=== PATIENT | female | born 1970 | race Caucasian/White ===

== ENCOUNTER 2021-11-16 09:16 | Outpatient (REF) | payer OTHER, SELFPAY ==
[2021-11-16 15:15] LABS: ESR 1 mm/hr (0-20)
== END 2021-11-16 09:17 | disposition home or self-care (01) ==
LOC: NCHCN 09:16
PROVIDERS: PCP Physician Assistant; Visit Provider Physician Assistant
DX: M79.18 Myalgia, other site (principal)
CPT/HCPCS: 85652; 86140

== ENCOUNTER 2022-02-10 10:14 | Outpatient (REF) | payer OTHER, SELFPAY ==
[2022-02-10 15:30] LABS: HCT 47.5 % (36.0-46.0); HGB 16.2 g/dL (11.2-15.7); MCH 30.2 pg (27.0-33.0); MCHC 34.1 % (32.0-36.0); MCV 89 fL (80-95); MPV 11.3 fL (8.0-11.0); Platelet Count 231 10^3/uL (130-400); RBC 5.36 10^6/uL (3.93-5.22); RDW 11.9 % (11.7-14.6); RDW-SD 38.3 fL; WBC 6.13 10^3/uL (4.4-10.8)
[2022-02-10 15:45] LABS: TSH 0.48 uIU/mL (0.36-3.74)
== END 2022-02-10 10:15 | disposition home or self-care (01) ==
LOC: NCHCN 10:14
PROVIDERS: PCP Physician Assistant; Visit Provider Physician Assistant
DX: E03.9 Hypothyroidism, unspecified (principal); R53.83 Other fatigue
CPT/HCPCS: 85027; 84443

== ENCOUNTER 2022-04-26 16:36 | Outpatient (REF) | payer OTHER, SELFPAY | END 2022-04-26 16:37 | disposition home or self-care (01) | LOC: NCHCN 16:36 | PROVIDERS: PCP Physician Assistant; Visit Provider Family Medicine | DX: R30.0 Dysuria (principal) | CPT/HCPCS: 87077; 87086; 87186 ==

== ENCOUNTER 2022-05-29 10:05 | Outpatient (REF) | payer OTHER, SELFPAY ==
--- NOTE | 2022-05-29 09:15 | PAPFT_PTH ---
PATIENT: Kim Mcgraw LOC: [facility]#:[id number] AGE/SX: 51/F ROOM: RE05/29/[address]: Candace Sutton : 1970 BED: DIS: 05/29/2022 SPEC #: [id number] RECD: 05/30/22 12:30 STATUS: SALVADRO REQ #: [id number] GURDEEP: 05/29/22 09:[address]: Candace Sutton DEPT: [facility] Cytology RECD BY: Bailey Daley ENTERED: 05/30/22 12:30 SP TYPE: PAPFT OTHR DR: Godwin Nation Tissues: 1 - CX/ENDOCX FOR PAP SMEARS Procedures: PAP THIN PREP/UVM Screening HPV DNA PROBE Comments: [id number]
== END 2022-05-29 10:06 | disposition home or self-care (01) ==
LOC: NCHCN 10:05
PROVIDERS: PCP Physician Assistant; Visit Provider Family Medicine
DX: Z12.4 Encounter for screening for malignant neoplasm of cervix (principal); Z11.51 Encounter for screening for human papillomavirus (HPV)
CPT/HCPCS: 88142; 87624

== ENCOUNTER 2022-11-15 10:43 | Outpatient (REF) | payer OTHER, SELFPAY ==
[2022-11-15 15:54] LABS: HCT 47.1 % (36.0-46.0); HGB 15.8 g/dL (11.2-15.7); MCH 30.6 pg (27.0-33.0); MCHC 33.5 % (32.0-36.0); MCV 91 fL (80-95); MPV 11.6 fL (8.0-11.0); Platelet Count 204 10^3/uL (130-400); RBC 5.17 10^6/uL (3.93-5.22); RDW 11.4 % (11.7-14.6); RDW-SD 38.5 fL; WBC 5.58 10^3/uL (4.4-10.8)
[2022-11-15 16:38] LABS: ALT 29 U/L (14-59); AST 17 U/L (15-37); Albumin 4.1 g/dL (3.4-5.0); Alkaline Phosphatase 68 U/L (46-116); Anion Gap 8.1 mmol/L (3-11); BUN 15 mg/dL (7-18); Bilirubin, Total 0.6 mg/dL (0.2-1.0); CO2 28.9 mmol/L (21.0-32.0); CREATININE 0.8 mg/dL (0.55-1.02); Calcium 9.3 mg/dL (8.5-10.1); Calculated LDL 84 mg/dL (<100); Chloride 104 mmol/L (98-107); Cholesterol 150 mg/dL (<200); Estimated GFR 89.15 (mL/min/1.73m2); Glucose 96 mg/dL (74-106); HDL Cholesterol 51 mg/dL (40-60); Potassium 4.9 mmol/L (3.5-5.1); Sodium 141 mmol/L (136-145); TSH 0.71 uIU/mL (0.36-3.74); Total Protein 7.1 g/dL (6.4-8.2); Triglyceride 76 mg/dL (<150); Vitamin B12 956 pg/mL (193-986)
== END 2022-11-15 10:44 | disposition home or self-care (01) ==
LOC: NCHCN 10:43
PROVIDERS: PCP Physician Assistant; Visit Provider Physician Assistant
DX: E78.5 Hyperlipidemia, unspecified (principal); E03.9 Hypothyroidism, unspecified; I10 Essential (primary) hypertension; E53.8 Deficiency of other specified B group vitamins
CPT/HCPCS: 80053; 80061; 85027; 82607; 84443

== ENCOUNTER → 2022-11-30 08:09 | Outpatient (BNVA) | payer OTHER, SELFPAY | PROVIDERS: PCP Physician Assistant; Referring Provider Physician Assistant; Visit Provider Physical Therapy Assistant | DX: Z12.11 Encounter for screening for malignant neoplasm of colon (principal) ==

== ENCOUNTER 2023-05-15 15:18 | Outpatient (REF) | payer OTHER, SELFPAY ==
[2023-05-15 16:46] LABS: FREE T4 1.13 ng/dL (0.76-1.46); TSH 1.01 uIU/mL (0.36-3.74)
== END 2023-05-15 15:19 | disposition home or self-care (01) ==
LOC: NCHCN 15:18
PROVIDERS: PCP Physician Assistant; Visit Provider Physician Assistant
DX: E03.9 Hypothyroidism, unspecified (principal)
CPT/HCPCS: 84439; 84443

== ENCOUNTER 2024-09-18 22:30 | Outpatient (REF) | payer OTHER, SELFPAY ==
[2024-09-18 16:18] LABS: ALT 30 U/L (14-59); AST 24 U/L (15-37); Alkaline Phosphatase 92 U/L (46-116); Anion Gap 7.6 mmol/L (3-11); BUN 19 mg/dL (7-18); Bilirubin, Total 0.6 mg/dL (0.2-1.0); CO2 28.4 mmol/L (21.0-32.0); CREATININE 0.9 mg/dL (0.55-1.02); Calculated LDL 94 mg/dL (<100); Chloride 106 mmol/L (98-107); Cholesterol 181 mg/dL (<200); Estimated GFR 76.44 (mL/min/1.73m2); Glucose 98 mg/dL (74-106); HDL Cholesterol 66 mg/dL (>or=50); Sodium 142 mmol/L (136-145); TSH 2.25 uIU/mL (0.36-3.74); Total Protein 7.3 g/dL (6.4-8.2); Triglyceride 105 mg/dL (<150); Vitamin B12 742 pg/mL (193-986)
== END 2024-09-18 22:31 | disposition home or self-care (01) ==
LOC: NCHCN 22:30
PROVIDERS: PCP Physician Assistant; Visit Provider Physician Assistant
DX: E53.9 Vitamin B deficiency, unspecified (principal); E03.9 Hypothyroidism, unspecified; E78.5 Hyperlipidemia, unspecified
CPT/HCPCS: 80053; 80061; 82607; 84443

== ENCOUNTER 2024-10-06 02:08 | Outpatient (CLI) | payer OTHER, SELFPAY ==
--- NOTE | 2024-10-06 | DI.MRI_ITS ---
Exam(s) MR LOWER JOINT RT WO EXAM: MR LOWER JOINT RT WO CLINICAL HISTORY: Pain and swelling, no trauma, M23.91-unspecified internal derangement of rt. TECHNIQUE: Multiplanar multisequence MRI was performed. COMPARISON: CR XR KNEE RT 3V AP,LAT,KOMAL from 10/06/2024 FINDINGS: BONES: There is no fracture or contusion pattern. JOINTS: A moderate-sized joint effusion is present. Articular cartilage: Patellofemoral joint: Thinning of the cartilage of the lateral patellar facet extending down to bone . Medial femoral tibial joint: Articular cartilage is unremarkable. Lateral femoral tibial joint: Articular cartilage is unremarkable. LIGAMENTS/TENDONS: Anterior Cruciate: Unremarkable. Posterior Cruciate: Unremarkable. Medial Collateral:Unremarkable. Lateral Collateral ligament complex: Unremarkable. Extensor mechanism: Unremarkable. Medial retinaculum: Unremarkable. Lateral retinaculum: Unremarkable. Popliteus: Unremarkable. MENISCI: The medial meniscus is shows an oblique tear through the posterior horn and blunting at the apex. The lateral meniscus is unremarkable. MUSCLES: Unremarkable. SOFT TISSUES: Small multi lobed Griffin's cyst. IMPRESSION: Tear of the posterior horn of the medial meniscus. Joint effusion. Griffin's cyst. DATA REPOSITORY:
--- NOTE | 2024-10-06 | DI.RAD_ITS ---
Exam(s) XR KNEE RT 3V AP,LAT,KOMAL EXAM: XR KNEE RT 3V AP,LAT,KOMAL CLINICAL HISTORY: DERANGEMENT RT KNEE, M23.91,PAIN, SWELLING, NO TRAUMA. TECHNIQUE: 2D digital imaging was performed. Three views. COMPARISON: No exams were available for comparison FINDINGS: BONES: No acute fracture is present. No bony destructive lesion is seen. JOINTS: The knee is normally aligned. The joint spaces are maintained. No joint effusion is seen. SOFT TISSUE: Normal. IMPRESSION: Unremarkable radiographs of the right knee. DATA REPOSITORY: RADIATION DOSE DELIVERED:
== END 2024-10-06 02:28 ==
LOC: DI 02:09
PROVIDERS: PCP Physician Assistant; Visit Provider Physician Assistant
DX: M23.222 Derangement of posterior horn of medial meniscus due to old tear or injury, left knee (principal)
CPT/HCPCS: 73562; 73721

== ENCOUNTER → 2024-10-08 09:49 | Outpatient (BNVA) | payer OTHER, SELFPAY | PROVIDERS: PCP Physician Assistant; Referring Provider Physician Assistant; Visit Provider Student in an Organized Health Care Education/Training Program | DX: M22.41 Chondromalacia patellae, right knee (principal); S83.241A Other tear of medial meniscus, current injury, right knee, initial encounter; X58.XXXA Exposure to other specified factors, initial encounter | CPT/HCPCS: 99214 ==

== ENCOUNTER 2024-10-17 08:45 | Day surgery (SDC) | payer OTHER, SELFPAY ==
--- NOTE | 2024-10-17 07:06 | W.PM.DSUDISC ---
Date of service: 10/17/24 Discharge Plan Disposition Patient Disposition: Home Condition: Stable Discharge Details Attending Provider: Andrew Soria Primary Care Provider: Godwin Nation Home Meds and New Rx's Prescriptions: New naproxen 250 mg tablet 250 - 500 mg PO BID PRN (Reason: moderate pain and swelling) Qty: 40 0RF oxycodone 5 mg tablet 5 - 10 mg PO .q4-6h MDD 30 mg PRN (Reason: severe pain) Qty: 12 0RF aspirin 81 mg capsule 81 mg PO DAILY 14 Days Qty: 14 0RF Continued cetirizine [Zyrtec] 10 mg tablet 10 mg PO DAILY PRN lisinopril 10 mg tablet 10 mg PO DAILY atorvastatin 20 mg tablet 20 mg PO QHS levothyroxine [Synthroid] 112 MCG tablet 112 mcg PO DAILY B-12 Compliance 1,000 MCG/ML kit 1,000 mcg IM DIRECTED Discharge Instructions Additional Instructions: Surgery: Right knee arthroscopy with partial medial & lateral meniscectomy, patellar chondroplasty, and synovectomy 10/17/24 Activity: Weightbearing as tolerated. Advance range of motion as comfort allows. No knee brace or crutches needed as soon as comfortable. Recommend avoiding sports, pivoting, and squatting for 6-8 weeks. A physical therapy prescription will be sent electronically to start in about 3 weeks. Prescriptions: Aspirin 81 mg take 1 daily to prevent a blood clot for 14 days, starting tomorrow Naproxen 250 mg take 1-2 every 12 hours with a meal as needed for moderate pain Oxycodone 5 mg take 1-2 every 4-6 hours as needed for severe pain You may use [id number] Tylenol (acetaminophen) as needed for mild pain. These pain medications may be taken all at once or in different combinations as needed. Also, recommend Colace (docusate) as a stool softener as surgery and pain medicine cause constipation. You may try [id number] diphenhydramine (Benadryl) 25-50 mg nightly as a sleep aid Dressings: Leave dressing in place for 3 days. May then remove and leave open to air or cover incisions with Band-Aids. Leave the sticky Steri-Strips in place until they fall off or remove them after you shower. May shower after 5 days. Follow-up: 10-[address] Soria You may take off the leg compression stockings this evening at home. You may also leave them on a few days longer if you have a history of leg swelling or edema. Let us know right away if you develop any redness, drainage, fevers, chest pain, or trouble breathing. Do not drink alcohol or drive for at least 24 hours after anesthesia. Please call the office during business hours with any questions or concerns. 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
--- NOTE | 2024-10-17 07:19 | ROE_ITS ---
Operative Note Operative Note PRE-OP DIAGNOSIS: Right knee 1. Medial meniscus tear 2. Chondromalacia POST-OP DIAGNOSIS: same PROCEDURE: Right knee 1. Partial medial & lateral meniscectomy, CPT #81720 2. Greater than 2 compartment synovectomy, CPT #34369: Anterior medial and lateral, intercondylar, patellofemoral, and suprapatellar 3. Chondroplasty, CPT #01828: Patella and medial femoral condyle SURGEON: Andrew Soria ESCAPE WHEEL TOOTH CUTTER: None None ANESTHESIA TYPE: Local By Surgeon and Spinal Refer to Anesthesia Record ESTIMATED BLOOD LOSS: 5 PATHOLOGY: none sent TOURNIQUET TIME: 0 Patient was transported to: PACU Patient's condition: stable Indications: Please see complete medical record for details. Findings: Exam under anesthesia: Full range of motion, no instability. Readily full extension with gentle downward pressure. Arthroscopic findings: Moderately significant diffuse synovitis. Suprapatellar adhesions. Engaging patellofemoral synovitis. Moderate undersurface patellar cartilage irregularity chondromalacia. Moderate anterior medial and anterior lateral synovitis. Inflamed intercondylar synovitis and early small intercondylar bone spurring. Moderate medial femoral condyle and medial compartment chondromalacia. More mild to moderate lateral compartment chondromalacia. Medial meniscus posterior horn superior leaflet degenerative tear with unstable flap edges and some tearing extending into the white zone of the body. Lateral meniscus with bulbous enlargement posterior horn tearing mostly white zone and some separate white-red zone radial tearing of the body. Procedure Description: In the operating room, general anesthesia was induced. The patient was positioned supine on the operating room table. All bony prominences were well- padded. Preoperative antibiotics were administered. The knee was prepped and draped in the usual sterile fashion. The correct patient, procedure, and side of the procedure were all verified prior to incision. Exam under anesthesia was performed. 10 cc of 0.25% bupivacaine containing epinephrine was infiltrated about the planned anteromedial and anterolateral knee arthroscopy portals. An additional 10 cc was infiltrated about the medial compartment. The portals were established and a complete diagnostic arthroscopy was performed with relevant findings detailed above. The mechanical shaver was used to remove adhesions and synovitis from the suprapatellar pouch, engaging inflamed synovitis in the patellofemoral compar tment, impinging synovitis in the intercondylar area, and debride anterior medial and lateral synovitis. The torpedo shaver was used to smooth and debride to a more appropriate and less irregular margin undersurface patellar chondromalacia as well as some chondromalacia on the posterior aspect of the medial femoral condyle. Using a combination of hand instruments including meniscal biters and torpedo shaver both the medial and lateral menisci were inspected and then their respective tears were debrided of all torn tissue to a stable margin. There was excellent removal of the torn tissue which did appear to be mechanically unstable and engaging especially posterior medially. Care was taken to preserve as much meniscus tissue was possible. The meniscal remnant was probed and found to have a stable margin, stable root, and no other tears. Under direct arthroscopic visualization an 18-gauge needle was passed into the knee from superolateral into the suprapatellar pouch. The knee was copiously irrigated with arthroscopic fluid until there was a clear effluent before being drained of all fluid. The anteromedial and anterolateral portals were closed in 3-0 Monocryl in a buried interrupted fashion. An additional 10 cc of 0.25% bupivacaine with epinephrine containing 4 mg of morphine was infiltrated into the knee through the previously placed needle. Mastisol, Steri-Strips, and 4 x 4 gauze were applied over the incisions. The knee was then wrapped gently with an JUNO comressive bandage. The patient tolerated spinal anesthesia without complication and was transferred to the recovery room in a stable condition. She watched the entire procedure, we reviewed the tricompartmental degenerative changes, and likelihood of needing future additional knee treatments like NSAIDs, steroid injection, and possible knee replacement surgery. Date of Procedure: 10/17/24
[2024-10-17 09:10] VITALS: BP 159/92; PULSE 83; RESP 20; TEMP 36.7; O2SAT 100
--- NOTE | 2024-10-17 09:36 | W.ANESPRE ---
General Info Date of Service Date Performed: 10/17/24 Height: 5 ft 7 in Weight: 77.5 kg Body Mass Index (BMI): 26.7 Surgical Procedure: Operation Date: 10/17/24 09:40 Proposed Procedure Side Surgeon p Knee Arthroscopy Right Andrew Soria MD Meds Allergies and Home Medications Allergies Allergy/AdvReac Type Severity Reaction Status Date / Time codeine AdvReac Intermediate Other (See Verified 10/17/24 09:09 Comment) Home Medication ?Medication ?Instructions ?Recorded cyanocobalamin (vitamin B-12) 1,000 mcg IM DIRECTED 08/18/16 1,000 mcg/mL injection kit (B-12 Compliance) levothyroxine 112 mcg tablet 112 mcg PO DAILY 08/18/16 (Synthroid) lisinopril 10 mg tablet 10 mg PO DAILY 05/15/22 cetirizine 10 mg tablet (Zyrtec) 10 mg PO DAILY PRN 11/30/22 atorvastatin 20 mg tablet 20 mg PO QHS 09/25/24 Current Visit Medications: Current Medications Generic Name Dose Route Start Last Admin Trade Name Freq PRN Reason Stop Dose Admin Ringer's Solution 1,000 mls @ 30 mls/hr 10/17/24 06:00 IV 10/17/24 23:59 INFUSION NICOLA Cefazolin Sodium/Dextrose 2 gm in 50 mls @ 100 mls/hr 10/17/24 06:00 Ancef Duplex IVPB 10/17/24 23:59 PREOP NICOLA Tranexamic Acid/Sodium Chloride 1,000 mg in 100 mls @ 600 mls/hr 10/17/24 06:00 IVPB 10/17/24 23:59 DIRECTED NICOLA IV Miscellaneous Supplies 1 each 10/17/24 06:00 Iv Access IV 10/17/24 23:59 DIRECTED NICOLA Oxycodone HCl 0 mg 10/17/24 07:06 Oxycodone 5 Mg Tab PO 11/16/24 07:05 Q3H PRN PRN Pain Sodium Chloride 0 ml 10/17/24 06:00 Normal Saline Flush 10 Ml Syr IV 10/17/24 23:59 PRN PRN Sodium Chloride 0 ml 10/17/24 06:00 Normal Saline 10 Ml Vial IJ 10/17/24 23:59 DIRECTED PRN Sterile Water 0 ml 10/17/24 06:00 Water,Injection,Sterile 10 Ml Vial IJ 10/17/24 23:59 DIRECTED PRN PFSH Active Problems Active Problems: Problem Status Onset Code Chondromalacia of patella, right Acute M22.41 Tear of medial meniscus of right knee Acute S83.241A Hypertension Chronic I10 Vitamin B12 deficiency Acute E53.8 Neck pain Acute M54.2 Other specified disorders of temporomandibular joint Acute M26.69 Hypothyroid Chronic E03.9 Myalgia Acute M79.10 Screening for colon cancer Acute Z12.11 Medical History Medical History John thyroiditis Hyperlipidemia Headache Joint pain Depression Allergic rhinitis Tobacco Smoking/Tobacco Use Status: Former Tobacco Use Passive smoking exposure: No Alcohol Alcohol Intake: current Alcohol intake frequency: a few times a month Substance Use Substance use: Never Substance use type: does not use Vital Signs and Lab Results Vital Signs Most Recent Vital Signs in EMR: Most Recent Vital Signs Temp Pulse Resp BP Pulse Ox 36.7 C 83 20 159/92 H 100 10/17/24 09:10 10/17/24 09:10 10/17/24 09:10 10/17/24 09:10 10/17/24 09:10 Point of Care Results Point of Care Results: POC- Test(urine) Negative 10/17/24 09:22 Lab Results Blood Type / Crossmatch: No Data to Display Complete Blood Count: No Data to Display Complete Metabolic Panel: Sodium 142 mmol/L (136-145) 09/18/24 09:00 Potassium 5.0 mmol/L (3.5-5.1) 09/18/24 09:00 Chloride 106 mmol/L (98-107) 09/18/24 09:00 Carbon Dioxide 28.4 mmol/L (21.0-32.0) 09/18/24 09:00 BUN 19 mg/dL (7-18) H 09/18/24 09:00 Creatinine 0.9 mg/dL (0.55-1.02) 09/18/24 09:00 Est GFR (CKD-EPI 2020) 76.44 (mL/min/1.73m2) 09/18/24 09:00 Calcium 10.0 mg/dL (8.5-10.1) 09/18/24 09:00 Albumin 4.0 g/dL (3.4-5.0) 09/18/24 09:00 Glucose 98 mg/dL (74-106) 09/18/24 09:00 Liver Function Panel: Alanine Aminotransferase (ALT/SGPT) 30 U/L (14-59) 09/18/24 09:00 Aspartate Amino Transf (AST/SGOT) 24 U/L (15-37) 09/18/24 09:00 Coagulation Panel: No Data to Display Cardiac Panel: No Data to Display Arterial Blood Gas: No Data to Display Venous Blood Gas: No Data to Display Pancreas Panel: No Data to Display Thyroid Panel: Thyroid Stimulating Hormone (TSH) 2.25 uIU/mL (0.36-3.74) 09/18/24 09:00 Infectious Disease: No Data to Display Blood Cultures: No Data to Display Toxicology Panel: No Data to Display Panel: No Data to Display Imaging and Studies Imaging and Studies Study information below may be from another EMR and interpreted by another provider. Please see original notes in EMR for more complete details. Stress Test Summary: 08/21/16 Stress results: The rate-pressure product for the peak heart rate and blood pressure was 75878yl Hg/min. Stress ECG: STRESS TEST ENDED IN 12 MINUTES BECAUSE OF PATIENT FATIGUE. MAX HR = 167. % OF TARGET = 95. NORMAL BLOOD PRESSURE AND HEART RATE RESPONSE TO EXERCISE. NO ANGINA. NO ISCHEMIC CHANGES. APPROXIMATE METS ACHIEVED 13.48 ABOVE AVERAGE FUNCTIONAL CAPACITY FOR EXERCISE. The stress ECG is negative. [place] treadmill score: 12. This score predicts a low risk of cardiac events. Anesthesia Assessment and Plan Anesthesia History Personal History: No History of Anesthesia Complications Family History: No Family History of Anesthesia Complications Exercise Tolerance Exercise Tolerance: Metabolic Equivalents>4 Pertinent Negatives Pertinent Negatives: No Symptoms of GERD, No Major Cardiovascular Symptoms or Complaints, No Major Pulmonary Symptoms or Complaints and No History of CVA/TIA Cardiac & Pulmonary Exam Cardiac Exam: Normal S1/S2 Heart Sounds Pulmonary Exam: Clear Bilateral Breath Sounds Implantable Cardiac Device Does patient have a Pacemaker or an ICD?: No Airway Exam Known Difficult Airway: No Mallampati Class: 2 Mouth Opening: Normal (> 3cm) Thyromental Distance: Greater than 3 cm Neck Range of Motion: Full ROM Neck Circumference: Normal Teeth Condition: Normal Dentition ASA Classification ASA Score: ASA 2 Emergency Case?: No NPO Status NPO Status: NPO Clears >2 hours, Solids >8 hours Status Status: Negative HCG Anesthesia Plan Resuscitation Status: Full Code Anesthesia Technique: Spinal Anesthesia Airway Planned: Natural Airway Monitors Used: Standard Monitors
[2024-10-17] MEDS: Lactated Ringers 1,000 ML 30 ML IV (09:40)
[2024-10-17 09:42] VITALS: BMI 26.7
[2024-10-17] MEDS: ceFAZolin 2 GM/50 ML BAG IVPB (09:58)
[2024-10-17] MEDS: TRANEXAMIC ACID/SOD. CHL. 1,000 MG/100 ML BAG 600 MG IVPB (10:08)
[2024-10-17] MEDS: Bupivacaine 0.25% Pres-Free W/EPI 30 ML VIAL (10:36)
[2024-10-17] MEDS: EPINEPHrine 10 MG/10 ML ML (10:37)
[2024-10-17] MEDS: MORPHine 4 MG/ML SYR (10:53)
[2024-10-17 11:10] VITALS: BP 111/67; PULSE 74; RESP 18; TEMP 36.4; O2SAT 97
[2024-10-17 11:48] VITALS: BP 134/75; PULSE 77; RESP 16; TEMP 36.4; O2SAT 99
--- NOTE | 2024-10-17 11:56 | W.ANESPOSTOP ---
Postoperative Evaluation Date, Time and Location Date Performed: 10/17/24 Time Performed: 11:56 Patient Location: Day Surgery Unit Vital Signs Most Recent Imported Vital Signs: Most Recent Vital Signs Temp Pulse Resp BP Pulse Ox 36.4 C L 77 16 134/75 99 10/17/24 11:48 10/17/24 11:48 10/17/24 11:48 10/17/24 11:48 10/17/24 11:48 Pain Score Most Recent Pain Score: Most Recent Pain Score Pain Level 0 10/17/24 11:48 Assessment Mental Status: Awake (Alert & Oriented to Patient Baseline) Airway and Respiratory Function: Patent airway with normal (patient baseline) respiratory exam Cardiovascular Function: Hemodynamically Stable Hydration Status: Adequately Hydrated Nausea & Vomiting: No Nausea or Vomiting Pain: Pain is tolerable per patient Peripheral Nerve Block: Patient did not receive a nerve block
== END 2024-10-17 12:35 | disposition home or self-care (01) ==
LOC: SUR 08:46
PROVIDERS: PCP Physician Assistant; Visit Provider Student in an Organized Health Care Education/Training Program
PROC: (CPT 29870; principal; 2024-10-17 09:30)
DX: S83.241A Other tear of medial meniscus, current injury, right knee, initial encounter (principal); M22.41 Chondromalacia patellae, right knee; M65.961 Unspecified synovitis and tenosynovitis, right lower leg
CPT/HCPCS: 29880; 81025; J0690; J1100; J2250; J2270; J2401; J2405; J2704

== ENCOUNTER → 2024-10-28 10:31 | Outpatient (BNVA) | payer OTHER, SELFPAY | PROVIDERS: PCP Physician Assistant; Referring Provider Physician Assistant; Visit Provider Student in an Organized Health Care Education/Training Program | DX: Z47.89 Encounter for other orthopedic aftercare (principal); M25.461 Effusion, right knee | CPT/HCPCS: 99024 ==

== ENCOUNTER 2025-02-20 19:38 | Outpatient (REF) | payer OTHER, SELFPAY ==
--- NOTE | 2025-02-20 15:30 | SKI_PTH ---
PATIENT: Kim Mcgraw LOC: [facility] U#:[id number] AGE/SX: 54/F ROOM: RE02/20/[address]: Charissa Cooley : 1970 BED: DIS: 02/20/2025 SPEC #: [id number] RECD: 02/23/25 12:07 STATUS: SALVADOR RETerrance #: [id number] GURDEEP: 02/20/25 15:[address]: Charissa Cooley DEPT: Surgical Specimen RECD BY: Stephanie Turner ENTERED: 02/23/25 12:08 SP TYPE: WILDER CALIXTO DR: Godwin Nation Tissues: 1 - SKIN BIOPSY(SHAVE/PUNCH) Procedures: SKIN LEVEL 4 Comments: [id number]
== END 2025-02-20 19:39 | disposition home or self-care (01) ==
LOC: LBN 19:38
PROVIDERS: PCP Physician Assistant; Visit Provider Physician Assistant
DX: L82.0 Inflamed seborrheic keratosis (principal)
CPT/HCPCS: 88305

== ENCOUNTER 2025-04-01 09:35 | Outpatient (REF) | payer OTHER, SELFPAY ==
[2025-04-01 16:26] LABS: TSH 0.55 uIU/mL (0.36-3.74)
[2025-04-01 22:51] LABS: FSH 13.4 mIU/mL (See Note)
== END 2025-04-01 09:36 | disposition home or self-care (01) ==
LOC: NCHCN 09:35
PROVIDERS: PCP Physician Assistant; Visit Provider Physician Assistant
DX: E03.9 Hypothyroidism, unspecified (principal); N95.1 Menopausal and female climacteric states
CPT/HCPCS: 83001; 84439; 84443